=== PATIENT | male | born 1955 | race Caucasian/White ===

== ENCOUNTER 2020-03-15 17:59 | Inpatient (IN) ==
[2020-03-15 18:22] LABS: Hematocrit 57.1 % (42.0-52.0); Hemoglobin 18.3 gm/dL (13.5-18.0); Mean Cell Volume 91.2 fl (78-100); Mean Corpuscular Hemoglobin 29.2 pg (27-31); Mean Platelet Volume 9.2 fl (8-11.3); Neutrophil # 8.8 K/mm3 (1.3-6.0); Platelet Count 365 K/mm3 (150-450); Red Blood Count 6.26 M/mm3 (4.7-6.0); Red Cell Distribution Width 13.1 % (11.5-14.0); White Blood Count 10.3 K/mm3 (4.0-10.5)
--- NOTE | 2020-03-15 18:38 | ERNOTE ---
<Alicia Livingston - Last Filed: 03/15/20 18:54> Neuro HPI ER Record Presenting Symptoms: other Time Seen by Provider: 03/15/20 18:00 Source: EMS Exam Limitations: dementia Immunizations: IMMUNIZATION HX Immunizations Up to Date Yes History of Influenza Vaccine No Hx Pneumococcal Vaccination No Allergies/Adverse Reactions: Allergies Allergy/AdvReac Type Severity Reaction Status Date / Time No Known Allergies Allergy Unverified 03/15/20 19:01 Home Medications: HOME MEDICATIONS NK 03/15/20 [Last Taken Unknown] - History of Present Illness Narrative: Patient is coming to the ER by altered mental status. Initial history is only available by EMS, but daughter is available shortly after arrival of the patient. Daughter reports that the patient has a longstanding history of drug use which includes meth. She is not aware of all the details since he had disappeared from her life and was homeless for a while. About 3 years ago another daughter found the patient and any drugs been at the house of the daughter who is currently here. She reports that he has been declining ever since, has been confused, very minimal communication is possible, patient understands his name but not too much else. No official diagnosis of dementia has been made. She has tried for a couple years unsuccessfully to get in place in the care center. Last year he was in the hospital and cough which but could not be placed in the care center because there was no funding. Since the patient never worked he has no insurance. The daughter has tried to apply for disability for him to get funding states that all the paperwork has been completed. Since she does not have a power of prosecuting attorney she is not able to get his medical records and has only limited access to the process of getting him disability. The daughter is very frustrated and crying as she is a single mom of 3 teenage children and the patient has been very uncooperative, refusing to take a bath, taking off his depends, urinating and defecating all over her house. This afternoon when she came home from work he was leaning on his bed, seemed to be weaker than usual and more sleepy, had vomited and put all over the house again. Patient is unable to give any history, can only state his name Review of Systems - Narrative Narrative: unable to obtain Medical History (Last Reviewed 03/15/20 @ 18:37 by Alicia Livingston MD) History of dementia Hx of drug abuse Social History: (Last Updated 03/15/20 @ 18:36 by Xiomara Dukes RN) Tobacco: Smoking Status: Current every day smoker Alcohol: alcohol intake: former Substance Use: substance use type: former substance user Physical Exam - Physical Exam General Appearance: Present: wd/wn, alert, no apparent distress, other - unkept, dirty, with feces between his toes and in his clothes Head Exam: Present: normal inspection, no evidence of injury Eye Exam: Normal inspection: bilateral, PERRL: bilateral Ears, Nose, Throat: Present: normal pharynx, other - edentulous Neck: Present: nontender Respiratory: Present: no respiratory distress, no accessory muscle use, lungs clear, decreased breath sounds Cardiovascular/Chest: Present: regular rate, rhythm, no murmur Gastrointestinal/Abdominal: Present: nontender, nondistended, soft Extremity Exam: Present: no edema Neurological Exam: Present: alert, other - moves all extremities, is able to state name, doesn't answer any other questions Skin Exam: Present: normal color, warm/dry Ana Coma Scale - Assess Eye Opening: Spontaneous Motor: Obeys Commands Verbal: Confused - Total Coma Scale Total: 14 Progress - Results and Orders Patient's Lab Results:: I have reviewed the patient's lab results. - Vital Signs Patient's Vital Signs:: I have reviewed the patient's vital signs. Vital Signs: Vital Signs 03/15/20 18:00 Temperature 36.3 C Pulse Rate 96 Respiratory Rate 16 Blood Pressure 115/79 O2 Sat by Pulse Oximetry 100 - EKG EKG #1 EKG: NSR, nonspecific ST T wave changes, other - prominent P-wave EKG read: Interp. by me - Progress/Reassessment Chief Complaint: Altered Mental Status Progress Note-Subjective: 03/15/20 19:43 patient did not cooperate with chest and abdomen Xray, which was ordered as he reportedly vomited at home, no vomiting here Departure Clinical Impression: Hyperproteinemia Altered mental state Qualifiers: Altered mental status type: unspecified Qualified Code(s): R41.82 - Altered mental status, unspecified Acute renal failure Qualifiers: Acute renal failure type: unspecified Qualified Code(s): N17.9 - Acute kidney failure, unspecified - Departure Disposition: Still a patient Condition: Stable <Brodale,Paul - Last Filed: 03/16/20 00:59> Neuro HPI ER Record Immunizations: IMMUNIZATION HX Immunizations Up to Date Yes History of Influenza Vaccine No Hx Pneumococcal Vaccination No Medical History (Last Reviewed 03/15/20 @ 18:37 by Alicia Livingston MD) History of dementia Hx of drug abuse Social History: (Last Updated 03/15/20 @ 18:36 by Xiomara Dukes RN) Tobacco: Smoking Status: Current every day smoker Alcohol: alcohol intake: former Substance Use: substance use type: former substance user Physical Exam - Physical Exam General Appearance: Present: wd/wn, alert, no apparent distress Head Exam: Present: normal inspection, no evidence of injury Respiratory: Present: no respiratory distress, no accessory muscle use Neurological Exam: Present: alert Progress - Vital Signs Vital Signs: Vital Signs 03/15/20 18:00 03/15/20 19:07 03/15/20 19:50 Temperature 36.3 C Pulse Rate 96 94 87 Respiratory Rate 16 22 H 27 H Blood Pressure 115/79 98/76 103/64 O2 Sat by Pulse Oximetry 100 100 99 03/15/20 19:51 Temperature Pulse Rate 87 Respiratory Rate Blood Pressure O2 Sat by Pulse Oximetry - CT/Ultrasound CT/Ultrasound Narrative: Ct head: IMPRESSION: 1. NO ACUTE INTRACRANIAL PROCESS; IF THERE IS CONTINUED CLINICAL CONCERN, FOLLOW-UP CT OR MRI IS RECOMMENDED. 2. AGE-RELATED ATROPHY WITH MODERATE ISCHEMIC SMALL VESSEL DISEASE IN THE PERIVENTRICULAR WHITE MATTER. 3. PROMINENT LATERAL VENTRICLES; CENTRAL ATROPHY VERSUS NORMAL PRESSURE HYDROCEPHALUS. Electronically signed by Tavo Sousa M.D.. - Progress/Reassessment Progress Note-Subjective: 03/15/20 20:[address] Del Toro and he agrees with admission. 03/16/20 00:24 With difficulty swabbing patient for preadmission Covid. At the same time he pulled his IV out and it needed to be restarted. We did get the patient calmed down and got Covid testing which was negative. Patient has been calm and cooperative since that time Paul Morgan DO, FAAFP
[2020-03-15 18:56] LABS: Urine Bilirubin 1 mg/dl (NEGATIVE); Urine Blood Negative /ul (NEGATIVE); Urine Ketone 5 mg/dL (NEGATIVE); Urine Nitrite Negative (NEGATIVE); Urine Protein 100 mg/dL (NEGATIVE); Urine Specific Gravity >=1.030 SP.GR. (1.005-1.030); Urine Urobilinogen Normal (NORMAL)
[2020-03-15 18:58] LABS: ALT 25 U/L (19-67); AST 28 U/L (0-48); Albumin * 5.6 gm/dl (3.4-5.0); Alkaline Phosphatase * 110 U/L (50-170); Anion Gap 22.8 mmol/L (6.8-13.8); BUN/Creatinine Ratio 11.3 (9.0-21.6); Bilirubin, Total 0.5 mg/dL (0.0-1.1); Blood Urea Nitrogen 46 mg/dL (6-23); CRP 0.7 mg/dL (0.0-0.9); Ca. Corrected For Albumin 9.5 mg/dL (8.4-10.2); Calcium * 11.1 mg/dL (7.9-10.9); Carbon Dioxide 22.8 mmol/L (24-32.6); Chloride 102 mmol/L (97-106); Glucose * 163 mg/dL (70-110); Potassium 4.6 mmol/L (3.4-4.6); Sodium 143 mmol/L (132-142); Total Protein 10.4 gm/dL (6.2-8.2)
[2020-03-15 18:59] LABS: Troponin I Less than 0.017 ng/mL (0.00-0.10)
[2020-03-15 19:12] LABS: Urine Amorphous Sediment Many - 3+ (NONE-FEW); Urine Appearance Cloudy (CLEAR); Urine Bacteria TRACE; Urine Color Yellow; Urine RBC 0-5 /hpf (0-5); Urine WBC 0-5 /hpf (0-5)
[2020-03-15 19:17] LABS: Cocaine Ur Negative (NEGATIVE); Urine Barbiturate Negative (NEGATIVE); Urine Benzodiazepines Negative (NEGATIVE); Urine Opiates Negative (NEGATIVE); Urine PCP Negative (NEGATIVE); Urine THC Negative (NEGATIVE)
[2020-03-15] MEDS ORDERED: NORMAL SALINE 1,000 ML IV ONE (19:51)
[2020-03-16] MEDS ORDERED: NORMAL SALINE 1,000 ML IV PRN (08:09)
[2020-03-16] MEDS ORDERED: LORazepam 2 MG/ML DISP.SYRIN IV PRN (08:19)
[2020-03-16 08:40] LABS: Albumin * 4.3 gm/dl (3.4-5.0); Anion Gap 17.9 mmol/L (6.8-13.8); BUN/Creatinine Ratio 10.4 (9.0-21.6); Bilirubin, Total 0.5 mg/dL (0.0-1.1); Calcium * 8.6 mg/dL (7.9-10.9); Carbon Dioxide 22.2 mmol/L (24-32.6); Potassium 4.1 mmol/L (3.4-4.6); Total Protein 8.3 gm/dL (6.2-8.2)
[2020-03-16 09:40] LABS: Phosphorus 5.6 mg/dL (2.2-4.2); Uric Acid 11.6 mg/dL (2.6-7.2)
--- NOTE | 2020-03-16 15:27 | CONS ---
- Reason for consultation (1) Altered mental state Date of Service: 03/16/20 HPI - General Source: patient, RN/MD, RN notes reviewed Exam Limitations: clinical condition - History of Present Illness Timing/Duration: unsure Allergies/Adverse Reactions: Allergies No Known Allergies Allergy (Unverified 03/15/20 19:01) Home Medications: Home Medications Medication Instructions Recorded Last Taken NK 03/15/20 Unknown Medications - Medications Current Medications: Current Medications Sodium Chloride (Sodium Chloride 0.9%) 1,000 mls @ 125 mls/hr IV .Q8H PRN PRN Reason: HYDRATION Stop: 04/15/20 08:10 Last Infusion: 03/16/20 09:30 Dose: Infused Documented by: Review of Systems - Review of Systems Generalized/Overall Review: Present: Malaise Neurological: Present: Other - Confusion Physical Examination - Exam Narrative: Patient has been increasingly confused at home. Is alert to person only, confused to place and time. Gives minimal responses. Has been uncooperative with cares and medical treatment, refused testing, refused a bath and pulled IV out. Is unable or unwilling to answer questions. Sleeping excessively. Discussed plan of care with Dr. Del Toro. I agree that he would benefit from [facility] placement for further evaluation and treatment. Vital Signs: Vital Signs - Last Taken Temp 36.8 C 03/16/20 12:00 Pulse 67 03/16/20 12:00 Resp 18 03/16/20 12:00 BP 115/62 03/16/20 12:00 Pulse Ox 96 03/16/20 12:00 O2 Oxygen Delivery Method Room Air Constitutional: Present: Alert, Looks Older than stated age. Absent: Oriented x3, Cooperative Neurologic: Present: other - Disoriented x 2. Appearance: Present: appropriate insight, impaired insight, impaired recent memory, impaired remote memory Eye contact: Present: refused to answer, uncooperative Thoughts: Present: no apparent hallucination, other - Confusion. - Results and Findings: Lab/Microbiology results last 24 hrs: Abnormal/Pending Laboratory Last 24 HRS 03/16/20 03/16/20 03/15/20 08:20 08:20 18:48 RBC Hgb Hct Immature Gran # (Auto) Neutrophils % Lymphocytes % Neutrophils # Lymphocytes # Sodium 144 H Plasma Sodium 144 H Chloride 108 H Carbon Dioxide 22.2 L Anion Gap 17.9 H BUN 58 H Creatinine 5.56 H D Est GFR (Non-Af Amer) 11 L D Random Glucose 125 H Uric Acid 11.6 H Calcium Calcium Adj for Albumin 8.0 L Phosphorus 5.6 H Total Protein 8.3 H Albumin Urine Protein 100 H Urine Bilirubin 1 H Amorphous Sediment Many - 3+ H 03/15/20 03/15/20 18:15 18:15 RBC 6.26 H Hgb 18.3 H Hct 57.1 H Immature Gran # (Auto) 0.04 H Neutrophils % 85.0 H Lymphocytes % 7.7 L Neutrophils # 8.8 H Lymphocytes # 0.80 L Sodium 143 H Plasma Sodium 144 H Chloride Carbon Dioxide 22.8 L Anion Gap 22.8 H BUN 46 H Creatinine 4.08 H Est GFR (Non-Af Amer) 16 L D Random Glucose 163 H Uric Acid Calcium 11.1 H Calcium Adj for Albumin Phosphorus Total Protein 10.4 H Albumin 5.6 H Urine Protein Urine Bilirubin Amorphous Sediment Culture 03/15/20 18:48 Urine Culture - Preliminary Urine,Catheterized No Growth - Assessments/Findings (1) Altered mental state Problem: Acute Qualifiers: Altered mental status type: unspecified Qualified Code(s): R41.82 - Altered mental status, unspecified
--- NOTE | 2020-03-16 21:38 | HP ---
Chief Complaint - Chief Complaint Date of Service: 03/16/20 Time of Service: 09:00 Chief Complaint: altered mental status History of Present Illness: Jovanny is a 64 yo male that was brought to the [facility] Er with changing mental status. He has been more and more confused over the past year with recent development of urinating and defecating on the floor at his daughter's house. He has been homeless and a drug user for most of his adult life. He was homeless in [place] and was found by a step daughter and brought back to live with his daughter in [place]. He has been living in the living room. Even when he arrived he had what appears to be dementia or brain disease from years of meth abuse. His daughter reports not recognizing her and not able to carry a conversation. She reports for the past year he wanders around her home, her family avoids interaction with him, and she brings him food and water which he manages to take on his own. She reports over the last few weeks he has not been drinking and eating as well and has recently lost the ability to remember to use the bathroom for toileting. She believes this has been a progressive decline over the past year and has not noticed any sudden changes. She has been working for the past year to get him into a residential home but has not been able to afford care and he has not qualified for assistance as he has never worked. In the ER he had imaging and labs. The only significant abnormality was creatinine of 4. This is new from a year ago when his creatinine was near 1.0 Medical History (Last Reviewed 03/15/20 @ 18:37 by Alicia Livingston MD) History of dementia Hx of drug abuse Surgical History: Surgical History (Last Updated 03/16/20 @ 21:37 by Lester Del Toro DO) Surgical history unknown Family History: Family History (Last Updated 03/16/20 @ 21:36 by Lester Del Toro DO) Other Family history non-contributory Social History: (Last Updated 03/15/20 @ 18:36 by Xiomara Dukes RN) Tobacco: Smoking Status: Current every day smoker Alcohol: alcohol intake: former Substance Use: substance use type: former substance user Review Of Systems (GEN) - Review of Systems Additional Comments: unable to complete due to condition Immunizations: IMMUNIZATION HX Immunizations Up to Date Yes History of Influenza Vaccine No Hx Pneumococcal Vaccination No Allergies/Adverse Reactions: Allergies Allergy/AdvReac Type Severity Reaction Status Date / Time No Known Allergies Allergy Unverified 03/15/20 19:01 Home Medications: HOME MEDICATIONS NK 03/15/20 [Last Taken Unknown] Exam - Exam Vital Signs: Vital Signs - Last Taken Temp 36.6 C 03/16/20 19:55 Pulse 64 03/16/20 19:55 Resp 20 03/16/20 19:55 BP 94/61 03/16/20 19:55 Pulse Ox 95 03/16/20 19:55 Constitutional: Present: Alert, No distress. Absent: Oriented x3 ENT Exam: Present: hearing grossly normal Eye Exam: bilateral eye: normal inspection Respiratory: Present: lungs clear, normal breath sounds, no respiratory distress Cardiovascular/Chest: Present: regular rate, rhythm, no edema Peripheral Pulses: radial (R): 2+, radial (L): 2+ Abdomen: Present: Normal bowel sounds, soft, nontender, nondistended Extremity: Present: normal inspection Skin Exam: Present: normal color, warm/dry, no cyanosis Neurologic: Present: no motor/sensory deficits Thoughts: Present: other - Answers yes or no to qsimple questions but I do not believe he understands. When asked more open ended questions he laughs Diagnostic Studies: Abnormal Lab Results 03/16/20 03/16/20 Range/Units 08:20 08:20 Sodium 144 H (132-142) mmol/L Plasma Sodium 144 H (130-142) mmol/L Chloride 108 H (97-106) mmol/L Carbon Dioxide 22.2 L (24-32.6) mmol/L Anion Gap 17.9 H (6.8-13.8) mmol/L BUN 58 H (6-23) mg/dL Creatinine 5.56 H D (0.4-1.4) mg/dL Est GFR (Non-Af Amer) 11 L D (60-130) mL/min Random Glucose 125 H (70-110) mg/dL Uric Acid 11.6 H (2.6-7.2) mg/dL Calcium Adj for Albumin 8.0 L (8.4-10.2) mg/dL Phosphorus 5.6 H (2.2-4.2) mg/dL Total Protein 8.3 H (6.2-8.2) gm/dL Microbiology 03/15/20 18:48 Urine Culture - Preliminary Urine,Catheterized No Growth Laboratory Results WBC 10.3 K/mm3 (4.0-10.5) 03/15/20 18:15 RBC 6.26 M/mm3 (4.7-6.0) H 03/15/20 18:15 Hgb 18.3 gm/dL (13.5-18.0) H 03/15/20 18:15 Hct 57.1 % (42.0-52.0) H 03/15/20 18:15 MCV 91.2 fl (78-100) 03/15/20 18:15 MCH 29.2 pg (27-31) 03/15/20 18:15 MCHC 32.0 g/dl (32-36) 03/15/20 18:15 RDW 13.1 % (11.5-14.0) 03/15/20 18:15 Plt Count 365 K/mm3 (150-450) 03/15/20 18:15 MPV 9.2 fl (8-11.3) 03/15/20 18:15 Immature Gran % (Auto) 0.40 % (0.001-0.429) 03/15/20 18:15 Immature Gran # (Auto) 0.04 K/mm3 (0.000-0.0310) H 03/15/20 18:15 Neutrophils % 85.0 % (42-75.0) H 03/15/20 18:15 Lymphocytes % 7.7 % (20-51) L 03/15/20 18:15 Monocytes % 6.7 % (0.0-9) 03/15/20 18:15 Eosinophils % 0.0 % (0.0-3.0) 03/15/20 18:15 Basophils % 0.2 % (0.0-1.0) 03/15/20 18:15 Nucleated RBC % 0.0 k/mm3 (0-1) 03/15/20 18:15 Neutrophils # 8.8 K/mm3 (1.3-6.0) H 03/15/20 18:15 Lymphocytes # 0.80 k/mm3 (1.5-3.5) L 03/15/20 18:15 Monocytes # 0.7 k/mm3 (0.0-1.0) 03/15/20 18:15 Eosinophils # 0.0 k/mm3 (0.0-0.7) 03/15/20 18:15 Absolute Basophils 0.0 k/mm3 (0.0-0.1) 03/15/20 18:15 Sodium 144 mmol/L (132-142) H 03/16/20 08:20 Plasma Sodium 144 mmol/L (130-142) H 03/16/20 08:20 Potassium 4.1 mmol/L (3.4-4.6) 03/16/20 08:20 Chloride 108 mmol/L (97-106) H 03/16/20 08:20 Carbon Dioxide 22.2 mmol/L (24-32.6) L 03/16/20 08:20 Anion Gap 17.9 mmol/L (6.8-13.8) H 03/16/20 08:20 BUN 58 mg/dL (6-23) H 03/16/20 08:20 Creatinine 5.56 mg/dL (0.4-1.4) H D 03/16/20 08:20 Est GFR (Non-Af Amer) 11 mL/min (60-130) L D 03/16/20 08:20 BUN/Creatinine Ratio 10.4 (9.0-21.6) 03/16/20 08:20 Random Glucose 125 mg/dL (70-110) H 03/16/20 08:20 Uric Acid 11.6 mg/dL (2.6-7.2) H 03/16/20 08:20 Calcium 8.6 mg/dL (7.9-10.9) 03/16/20 08:20 Calcium Adj for Albumin 8.0 mg/dL (8.4-10.2) L 03/16/20 08:20 Phosphorus 5.6 mg/dL (2.2-4.2) H 03/16/20 08:20 Total Bilirubin 0.5 mg/dL (0.0-1.1) 03/16/20 08:20 AST 25 U/L (0-48) 03/16/20 08:20 ALT 22 U/L (19-67) 03/16/20 08:20 Alkaline Phosphatase 86 U/L (50-170) 03/16/20 08:20 Troponin I Less than 0.017 ng/mL (0.00-0.10) 03/15/20 18:15 C-Reactive Prot, Quant 0.7 mg/dL (0.0-0.9) 03/15/20 18:15 Total Protein 8.3 gm/dL (6.2-8.2) H 03/16/20 08:20 Albumin 4.3 gm/dl (3.4-5.0) 03/16/20 08:20 Urine Color Yellow 03/15/20 18:48 Urine Appearance Cloudy (CLEAR) 03/15/20 18:48 Urine pH 5.0 pH (5.0-7.0) 03/15/20 18:48 Ur Specific Arley >=1.030 SP.GR. (1.005-1.030) 03/15/20 18:48 Urine Protein 100 mg/dL (NEGATIVE) H 03/15/20 18:48 Urine Glucose (UA) Negative mg/dL (NEGATIVE) 03/15/20 18:48 Urine Ketones 5 mg/dL (NEGATIVE) 03/15/20 18:48 Urine Blood Negative /ul (NEGATIVE) 03/15/20 18:48 Urine Nitrate Negative (NEGATIVE) 03/15/20 18:48 Urine Bilirubin 1 mg/dl (NEGATIVE) H 03/15/20 18:48 Urine Urobilinogen Normal EU/dl (NORMAL) 03/15/20 18:48 Ur Leukocyte Esterase Negative /ul (NEGATIVE) 03/15/20 18:48 Urine RBC 0-5 /hpf (0-5) 03/15/20 18:48 Urine WBC 0-5 /hpf (0-5) 03/15/20 18:48 Ur Epithelial Cells 0-5 /hpf (0-5) 03/15/20 18:48 Amorphous Sediment Many - 3+ (NONE-FEW) H 03/15/20 18:48 Urine Bacteria Trace (NONE) 03/15/20 18:48 Urine Culture Comments Culture to follow 03/15/20 18:48 Urine Opiates Screen Negative (NEGATIVE) 03/15/20 18:45 Barbiturate Screen Negative (NEGATIVE) 03/15/20 18:45 Ur Phencyclidine Scrn Negative (NEGATIVE) 03/15/20 18:45 Urine Amphetamine Negative (NEGATIVE) 03/15/20 18:45 U Benzodiazepines Scrn Negative (NEGATIVE) 03/15/20 18:45 Urine Cocaine Screen Negative (NEGATIVE) 03/15/20 18:45 Urine Marijuana (THC) Negative (NEGATIVE) 03/15/20 18:45 Ethyl Alcohol Less than 3.0 mg/dL (0.0-10.0) 03/15/20 18:15 SARS-CoV-2 (PCR) Not detected (NotDetected) 03/15/20 23:10 Assessment/Plan - Narrative Narrative: Jovanny is a 64 yo male with progressive dementia and acute renal failure. His creatinine is 4 with a previously normal renal function. I suspect this is secondary to decreased oral intake due to the dementia. Will consult psychiatry for an evaluation of his mental status. Discussed his condition with his daughter who understands this to be progressive. Plan to give IV fluids but due to his mental status he is declining medical cares. Discussed restraining him to provide cares but his daughter does not want this and understands that even after forcing hydration once correction of renal failure is achieved his current condition would likely cause him to be unable to maintain adequate hydration and nourishment to prevent this from repeatedly reoccurring. Discussed hospice adn comfort cares which she is in agreement with. - Assessment/Plan (1) Altered mental state Problem: Acute Qualifiers: Altered mental status type: disorientation Qualified Code(s): R41.0 - Disorientation, unspecified (2) Acute renal failure Problem: Acute Qualifiers: Acute renal failure type: unspecified Qualified Code(s): N17.9 - Acute kidney failure, unspecified
--- NOTE | 2020-03-18 03:36 | PN ---
Subjective - Date and Time Seen Date: 03/17/20 Time: 11:30 Subjective Narrative: Jovanny is calm and pleasant. He answers simple questions with yes or no, although I am not convinced that he really understands. Any open ended questions he laughs at. He is quiet and calm when left alone but he does not want to do anything if asked to do something. He ate small bites today. Objective - Vitals Vitals: Last Vital Signs Temp 36.2 C 03/18/20 02:17 Pulse 65 03/18/20 02:17 Resp 20 03/18/20 02:17 BP 125/66 03/18/20 02:17 Pulse Ox 99 03/18/20 02:17 - Abnormal Lab Findings Abnormal Lab Findings: Abnormal Lab Results 03/15/20 Range/Units 18:48 Ur Random Creatinine 325.9 H (60-200) mg/dL - Exam Constitutional: Present: Alert, No distress. 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 He has acute renal failure secondary to decrease in functioning that he cannot adequately take in proper fluid and nutrition. Recommend hospice/comfort cares at nursing facility. He is not able to care for himself and needs more assistance than family can reasonably provide. finance officer looking into placement. He does not allow treatment of his acute renal failure, but again even if treated his condition would cause this to reoccur. - Problems/Diagnosis (1) Altered mental state Problem: Acute Qualifiers: Altered mental status type: disorientation Qualified Code(s): R41.0 - Disorientation, unspecified (2) Acute renal failure Problem: Acute Qualifiers: Acute renal failure type: unspecified Qualified Code(s): N17.9 - Acute kidney failure, unspecified
[2020-03-18] MEDS ORDERED: LORazepam 1 MG TABLET PO PRN (08:58)
[2020-03-18] MEDS: HALOPERIDOL LACTATE 2 MG/ML ORAL.CONC PO PRN ×2 (13:20→21:20)
--- NOTE | 2020-03-18 13:25 | PN ---
Subjective - Date and Time Seen Date: 03/18/20 Time: 09:30 Subjective Narrative: Nursing reports that Jovanny is beginning to have behaviors. He will not keep his pants on. He walking around his room and now starting to walk outside the room into the [place] without his pants on. Nursing is had to keep him at a distance for safety purposes. I gave him a milligram of lorazepam this morning but it had no effect. It was given and pudding and he ate it well. I will start him on haloperidol 2 mg every 8 hours for behaviors. Otherwise there is been no other medical changes. He will need intermediate placement but that will happen until sometime next week. Objective - Review of Systems Generalized/Overall Review: Reports: No Symptoms Reported EENTM: Reports: No Symptoms Reported Respiratory: Reports: No Symptoms Reported Cardiac: Reports: No Symptoms Reported Abdominal: Reports: No Symptoms Reported Genitourinary Symptoms: Reports: No Symptoms Reported Musculoskeletal Complaints: Reports: No Symptoms Reported Neurological: Reports: Other - Psychosis Skin: Reports: No Symptoms Reported Endocrine: Reports: No Symptoms Reported - Vitals Vitals: Last Vital Signs Temp 36.3 C 03/18/20 06:00 Pulse 71 03/18/20 06:00 Resp 18 03/18/20 06:00 BP 127/91 H 03/18/20 06:00 Pulse Ox 93 03/18/20 06:00 - Exam Constitutional: Present: Alert, Well developed, No distress, Looks Older than stated age. Absent: Oriented x3, Cooperative, Well nourished ENT Exam: Present: normal ENT inspection, hearing grossly normal, pharynx normal, TMs normal Neck: Present: non-tender, full range of motion, supple, normal inspection Breasts: Present: Exam deferred Respiratory: Present: chest non-tender, lungs clear, normal breath sounds, no respiratory distress, no accessory muscle use Cardiovascular/Chest: Present: normal peripheral pulses, regular rate, rhythm, no chest tenderness, no edema, no gallop, no JVD, no murmur, no rub Abdomen: Present: Normal bowel sounds, soft, nontender, nondistended /Rectal: Present: External genitalia normal Extremity: Present: normal range of motion, non-tender, normal inspection, no pedal edema, no calf tenderness, normal capillary refill Skin Exam: Present: normal color, warm/dry, no cyanosis Lymphatic: Present: no adenopathy Neurologic: Present: esl teacher II-XII nml as tested, no motor/sensory deficits, alert. Absent: normal mood/affect - Confused, agitated behaviors Appearance: Present: disheveled, impaired insight, impaired recent memory, impaired remote memory Eye contact: Present: uncooperative Thoughts: Present: other - Confused, irrational Assessment/Plan Plan Narrative: 1. Continue minimal monitoring. He resists vital signs being checked. He will keep an eye VN. We reviewed refuses and gets combative with lab work. 2. Case management will be working on intermediate placement after the . 3. Add haloperidol 2 mg concentrate in liquids 3 times daily 4. Increase lorazepam to 2 mg every 6 hours and food as needed for agitation and behaviors. 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
[2020-03-18] MEDS: LORazepam 1 MG TABLET PO PRN (15:43)
[2020-03-19] MEDS: LORazepam 1 MG TABLET PO PRN ×3 (00:57→21:57)
[2020-03-19] MEDS ORDERED: HALOPERIDOL LACTATE 2 MG/ML ORAL.CONC PO ONE ×2 (01:46→23:52)
[2020-03-19] MEDS: HALOPERIDOL LACTATE 2 MG/ML ORAL.CONC PO PRN ×2 (08:58→22:08)
--- NOTE | 2020-03-19 10:07 | PN ---
Subjective - Date and Time Seen Date: 03/19/20 Time: 09:57 Subjective Narrative: Jovanny became more difficult to manage yesterday. He became combative little bit aggressive towards nursing staff. He would not cooperate. Would not keep his pants on. He was going for a walk in the [place] his clothes on. I started him on haloperidol concentrate 2 mg every 8 hours and it seems to be helping some this morning. Nursing called last night and reported that he had had a fall. There were no deformities and so I had him wait until this morning when I could assess him to decide whether x-raying was needed or not. He does have tenderness and swelling in the right shoulder and so I have ordered an x- ray for that this morning. He guards the shoulder when examined as well. Otherwise he seems to be doing okay. He eats fairly well. He is incontinent both bowel and bladder. Objective - Review of Systems Generalized/Overall Review: Reports: No Symptoms Reported EENTM: Reports: No Symptoms Reported Respiratory: Reports: No Symptoms Reported Cardiac: Reports: No Symptoms Reported Abdominal: Reports: No Symptoms Reported Genitourinary Symptoms: Reports: No Symptoms Reported Musculoskeletal Complaints: Reports: Joint Pain - Right shoulder Neurological: Reports: No Symptoms Reported, Other - Psychosis Skin: Reports: No Symptoms Reported Endocrine: Reports: No Symptoms Reported - Vitals Vitals: Last Vital Signs Temp 36.9 C 03/19/20 07:00 Pulse 76 03/19/20 07:00 Resp 18 03/19/20 07:00 BP 116/61 03/19/20 07:00 Pulse Ox 97 03/19/20 07:00 - EKG/Xray Findings XRAY: shoulder - Right - Exam Constitutional: Present: Alert, Well developed, No distress, Looks Older than stated age. Absent: Oriented x3, Cooperative ENT Exam: Present: normal ENT inspection Neck: Present: non-tender Breasts: Present: Exam deferred Respiratory: Present: chest non-tender, lungs clear, normal breath sounds, no respiratory distress, no accessory muscle use Cardiovascular/Chest: Present: normal peripheral pulses, regular rate, rhythm, no chest tenderness, no edema, no gallop, no JVD, no murmur, no rub Abdomen: Present: Normal bowel sounds, soft, nontender, nondistended /Rectal: Present: Exam deferred, External genitalia normal Extremity: Present: no pedal edema, no calf tenderness, normal capillary refill. Absent: normal range of motion - Right shoulder has limited range of motion and he is guarding it on exam. There is palpable soft tissue swelling. Skin Exam: Present: normal color, warm/dry, no cyanosis Lymphatic: Present: no adenopathy Neurologic: Present: health and safety specialist II-XII nml as tested, no motor/sensory deficits, abnormal gait Appearance: Present: disheveled, impaired insight, impaired recent memory, impaired remote memory Eye contact: Present: uncooperative Thoughts: Present: other - Psychotic behaviors. 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 Problem: Acute (2) COPD (chronic obstructive pulmonary disease) Problem: Acute Qualifiers: COPD type: unspecified COPD Qualified Code(s): J44.9 - Chronic obstructive pulmonary disease, unspecified (3) Altered mental state Problem: Acute Qualifiers: Altered mental status type: disorientation Qualified Code(s): R41.0 - Disorientation, unspecified (4) Fall during current hospitalization Problem: Acute Qualifiers: Encounter type: initial encounter Qualified Code(s): W19.XXXA - Unspecified fall, initial encounter; Y92.239 - Unspecified place in hospital as the place of occurrence of the external cause (5) Right shoulder pain Problem: Acute Qualifiers: Chronicity: acute Qualified Code(s): M25.511 - Pain in right shoulder
[2020-03-19] MEDS: MORPHINE SULFATE 10 MG/0.5 ML SYRINGE PO PRN ×3 (11:36→20:44)
--- NOTE | 2020-03-19 12:53 | CONS ---
[facility] - General Date of Service: 03/19/20 Narrative: Mr. Dooley is a 64-year-old gentleman with a history of drug abuse who was admitted for altered mental status and difficulty with care at home. His medical team was looking for placement when he noted to have swelling, bruising, and discomfort in his right shoulder and radiographs were obtained which showed a mildly impacted minimally displaced right proximal humerus fracture. He does not follow commands and is unable to answer questions upon evaluation today. All my information comes from nursing and physician notes. Source: RN/MD Exam Limitations: clinical condition - History of Present Illness Timing/Duration: unsure Severity: mild Modifying Factors - (Worsens): Reports: movement Modifying Factors - (Improves): Reports: immobilization, medication Associated Symptoms: other - Obtained from patient Allergies/Adverse Reactions: Allergies No Known Allergies Allergy (Unverified 03/15/20 19:01) Home Medications: Home Medications Medication Instructions Recorded Last Taken NK 03/15/20 Unknown Medications - Medications Current Medications: Current Medications Sodium Chloride (Sodium Chloride 0.9%) 1,000 mls @ 125 mls/hr IV .Q8H PRN PRN Reason: HYDRATION Stop: 04/15/20 08:10 Last Infusion: 03/16/20 09:30 Dose: Infused Documented by: Lorazepam (Lorazepam 1 Mg Tablet) 2 mg PO Q6HRT PRN PRN Reason: anxiety Stop: 04/17/20 08:59 Last Admin: 03/19/20 00:57 Dose: 2 mg Documented by: Morphine Sulfate (Morphine Sulfate 10 Mg/0.5 Ml Syringe) 10 mg PO Q4H PRN PRN Reason: Pain Stop: 04/18/20 11:18 Last Admin: 03/19/20 11:36 Dose: 10 mg Documented by: Review of Systems - Review of Systems Narrative: Unable to obtain from patient Physical Examination - Exam Narrative: He is resting in bed. He does not wake up to verbal or light physical stimuli but appears to be resting comfortably. Right upper extremity: Ecchymosis with mild swelling to his right proximal arm. No gross deformity. He has palpable radial pulse. He does move his hand to some stimuli. He does not respond to questioning as far as sensation goes. He is not following commands for motion. Vital Signs: Vital Signs - Last Taken Temp 36.9 C 03/19/20 07:00 Pulse 76 03/19/20 07:00 Resp 18 03/19/20 07:00 BP 116/61 03/19/20 07:00 Pulse Ox 97 03/19/20 07:00 O2 Oxygen Delivery Method Room Air - Results and Findings: Narrative: Review shoulder x-ray including axillary views were reviewed of right shoulder: Varus impacted mildly displaced comminuted proximal humerus fracture without dislocation without signs of other acute osseous pathology - Assessments/Findings (1) Fracture of proximal end of right humerus Diagnosis(s): It was discussed with his treating physician that this appears nonsurgical at this time. I would recommend a shoulder immobilizer and nonweightbearing to the arm. He will need repeat films in approximately 1 to 2 weeks. Once signs of early healing the plan will be to start range of motion pending his mental status. He can be transferred to a nursing facility at any point. I will see him back in clinic after discharge. Problem: Acute Qualifiers: Encounter type: initial encounter Fracture type: closed Fracture morphology: other fracture Fracture alignment: nondisplaced Qualified Code(s): S42.294A - Other nondisplaced fracture of upper end of right humerus, initial encounter for closed fracture
[2020-03-20] MEDS: MORPHINE SULFATE 10 MG/0.5 ML SYRINGE PO PRN ×5 (02:41→19:35)
[2020-03-20] MEDS: LORazepam 1 MG TABLET PO PRN ×3 (04:22→19:35)
[2020-03-20] MEDS: HALOPERIDOL LACTATE 2 MG/ML ORAL.CONC PO PRN ×3 (07:05→23:40)
--- NOTE | 2020-03-20 09:59 | PN ---
Subjective - Date and Time Seen Date: 03/20/20 Time: 08:15 Subjective Narrative: . Isaac had a restless night. The Haldol 2 mg and lorazepam 2 mg is not sufficient dosing. Dr. Reynoso has seen him and states he has minimally displaced comminuted fracture of the right proximal humerus with slight varus deformity. It is not dislocated. He recommends an arm immobilizer. I ordered 1 yesterday but we did not have one that would fit him as the only one that he had was a small. It is doubtful that he would keep it on anyway. No surgery is required. Objective - Review of Systems Generalized/Overall Review: Reports: No Symptoms Reported EENTM: Reports: No Symptoms Reported Respiratory: Reports: No Symptoms Reported Cardiac: Reports: No Symptoms Reported Abdominal: Reports: No Symptoms Reported Genitourinary Symptoms: Reports: No Symptoms Reported Musculoskeletal Complaints: Reports: Joint Pain, Joint Swelling - Due to shoulder fracture. Neurological: Reports: No Symptoms Reported Skin: Reports: No Symptoms Reported, Bruising - Bruising over the shoulder is noted. Endocrine: Reports: No Symptoms Reported - Vitals Vitals: Last Vital Signs Temp 36.0 C 03/19/20 21:50 Pulse 108 H 03/19/20 21:50 Resp 22 H 03/19/20 21:50 BP 148/76 03/19/20 21:50 Pulse Ox 100 03/19/20 20:29 - EKG/Xray Findings XRAY: shoulder Interpretation: Reviewed by me - Exam Constitutional: Present: Alert, Oriented x3, Cooperative, Well developed, Well nourished, No distress ENT Exam: Present: normal ENT inspection, hearing grossly normal Neck: Present: non-tender, full range of motion Respiratory: Present: chest non-tender, lungs clear Cardiovascular/Chest: Present: normal peripheral pulses, regular rate, rhythm, n o chest tenderness, no edema, no gallop, no JVD, no murmur Abdomen: Present: Normal bowel sounds, soft, nontender, nondistended, no rebound tenderness, no hepatospenomegaly, no masses /Rectal: Present: Exam deferred Extremity: Present: other - Limited range of motion of the right shoulder due to fracture. Skin Exam: Present: normal color - Except for the ecchymosis over the right shoulder. 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 We will try to get a shoulder immobilizer that will fit him tomorrow 2. Anticipate discharge to a half-way at some point this week. Case management is working on it. 3. 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 Problem: Acute (2) Fracture of proximal end of right humerus Problem: Acute Qualifiers: Encounter type: initial encounter Fracture type: closed Fracture morphology: other fracture Fracture alignment: nondisplaced Qualified Code(s): S42.294A - Other nondisplaced fracture of upper end of right humerus, initial encounter for closed fracture (3) COPD (chronic obstructive pulmonary disease) Problem: Acute Qualifiers: COPD type: unspecified COPD Qualified Code(s): J44.9 - Chronic obstructive pulmonary disease, unspecified (4) Altered mental state Problem: Acute Qualifiers: Altered mental status type: disorientation Qualified Code(s): R41.0 - Disorientation, unspecified (5) Fall during current hospitalization Problem: Acute Qualifiers: Encounter type: initial encounter Qualified Code(s): W19.XXXA - Unspecified fall, initial encounter; Y92.239 - Unspecified place in hospital as the place of occurrence of the external cause (6) Right shoulder pain Problem: Acute Qualifiers: Chronicity: acute Qualified Code(s): M25.511 - Pain in right shoulder
[2020-03-21] MEDS: MORPHINE SULFATE 10 MG/0.5 ML SYRINGE PO PRN ×8 (00:46→23:14)
[2020-03-21] MEDS: LORazepam 1 MG TABLET PO PRN ×2 (02:16→10:21)
[2020-03-21] MEDS: HALOPERIDOL LACTATE 2 MG/ML ORAL.CONC PO PRN ×2 (07:40→22:09)
[2020-03-21] MEDS: LORAZEPAM 2 MG/ML ORAL.CONC PO PRN ×3 (11:24→22:35)
[2020-03-21] MEDS ORDERED: GLYCERIN/PROPYLENE GLYCOL 150 DROP BTL EACHEYE PRN (16:21)
--- NOTE | 2020-03-21 23:31 | PN ---
Subjective - Date and Time Seen Date: 03/21/20 Time: 16:00 Subjective Narrative: Jovanny was mad comfort cares per daughters wishes. He is non-communicative, demented, without cognitive function to complete and ADLs or have any function of life. He was given morphine for pain control of right shoulder pain and ativan for prn restlessness/anxiety. Objective - Vitals Vitals: Last Vital Signs Temp 36.5 C 03/21/20 02:32 Pulse 112 H 03/21/20 02:32 Resp 16 03/21/20 02:32 BP 113/76 03/21/20 02:32 Pulse Ox 94 03/21/20 02:32 - Exam Constitutional: Present: Somnolent. Absent: Oriented x3 Respiratory: Present: lungs clear, normal breath sounds Cardiovascular/Chest: Present: regular rate, rhythm Abdomen: Present: Normal bowel sounds, soft, nontender, nondistended Neurologic: Present: other - grunts when spoken to Thoughts: Absent: normal thought pattern Assessment/Plan Plan Narrative: Made comfort cares today. 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 Looking into nursing placement with comfort cares/hospice. - Problems/Diagnosis (1) Toxic encephalopathy Problem: Chronic (2) Altered mental state Problem: Acute Qualifiers: Altered mental status type: disorientation Qualified Code(s): R41.0 - Disorientation, unspecified (3) Acute renal failure Problem: Acute Qualifiers: Acute renal failure type: unspecified Qualified Code(s): N17.9 - Acute kidney failure, unspecified
[2020-03-22] MEDS: LORAZEPAM 2 MG/ML ORAL.CONC PO PRN ×6 (02:00→23:55)
[2020-03-22] MEDS: MORPHINE SULFATE 10 MG/0.5 ML SYRINGE PO PRN ×4 (02:52→13:38)
[2020-03-22] MEDS: ATROPINE SULFATE 50 DROP BTL SL PRN ×2 (18:15→21:31)
[2020-03-22] MEDS: HYDROmorphone HCL 2 MG/ML VIAL IV PRN (21:28)
--- NOTE | 2020-03-22 23:22 | PN ---
Subjective - Date and Time Seen Date: 03/22/20 Time: 12:00 Subjective Narrative: Jovanny is somnolent and appears comfortable. No fever, chills, vomiting. Objective - Vitals Vitals: Last Vital Signs Temp 37.6 C 03/22/20 20:21 Pulse 111 H 03/22/20 20:21 Resp 20 03/22/20 20:21 BP 128/71 03/22/20 20:21 Pulse Ox 90 L 03/22/20 20:21 - Exam Constitutional: Present: Somnolent Respiratory: Present: lungs clear, normal breath sounds, no respiratory distress Cardiovascular/Chest: Present: regular rate, rhythm, no murmur Abdomen: Present: hypoactive Skin Exam: Present: normal color, warm/dry, no cyanosis Assessment/Plan Plan Narrative: On comfort cares. Using morphine and ativan prn pain and restlessness. Unable to complete ADLs such as eating and drinking due to cognitive decline. Suspect end of life soon. - Problems/Diagnosis (1) Toxic encephalopathy Problem: Chronic (2) Altered mental state Problem: Acute Qualifiers: Altered mental status type: disorientation Qualified Code(s): R41.0 - Disorientation, unspecified (3) Acute renal failure Problem: Acute Qualifiers: Acute renal failure type: unspecified Qualified Code(s): N17.9 - Acute kidney failure, unspecified
[2020-03-23] MEDS: ATROPINE SULFATE 50 DROP BTL SL PRN ×3 (00:56→15:26)
[2020-03-23] MEDS: HYDROmorphone HCL 2 MG/ML VIAL IV PRN ×4 (02:14→17:06)
[2020-03-23] MEDS: LORAZEPAM 2 MG/ML ORAL.CONC PO PRN ×2 (10:22→15:22)
[2020-03-23 20:53] VITALS: BP 104/71
--- NOTE | 2020-03-23 21:29 | PN ---
Subjective - Date and Time Seen Date: 03/23/20 Time: 12:30 Subjective Narrative: No fevers. Patient has been comfortable. No signs of distress. Objective - Vitals Vitals: Last Vital Signs Temp 39.0 C H 03/23/20 20:52 Pulse 127 H 03/23/20 20:52 Resp 20 03/23/20 20:52 BP 104/71 03/23/20 20:52 Pulse Ox 84 L 03/23/20 20:52 - Exam Constitutional: Present: Obtunded Respiratory: Present: lungs clear, no respiratory distress Cardiovascular/Chest: Present: regular rate, rhythm, no murmur Abdomen: Present: soft, nontender, hypoactive Skin Exam: Present: other - bruising on right shoulder Assessment/Plan Plan Narrative: On comfort cares. No signs of pain or distress. Life expectancy days or hours. - Problems/Diagnosis (1) Toxic encephalopathy Problem: Chronic (2) Altered mental state Problem: Acute Qualifiers: Altered mental status type: disorientation Qualified Code(s): R41.0 - Disorientation, unspecified (3) Acute renal failure Problem: Acute Qualifiers: Acute renal failure type: unspecified Qualified Code(s): N17.9 - Acute kidney failure, unspecified
[2020-03-24] MEDS: HYDROmorphone HCL 2 MG/ML VIAL IV PRN ×6 (01:01→17:22)
[2020-03-24] MEDS: LORAZEPAM 2 MG/ML ORAL.CONC PO PRN ×5 (03:36→17:22)
[2020-03-24] MEDS: ATROPINE SULFATE 50 DROP BTL SL PRN (03:37)
--- NOTE | 2020-03-24 12:51 | PN ---
Subjective - Date and Time Seen Date: 03/24/20 Time: 09:50 Subjective Narrative: Patient does not respond to verbal or tactile stimuli. He appears comfortable and in no distress. Objective - Review of Systems Generalized/Overall Review: Denies: Fever Misc: All systems neg except as marked - Vitals Vitals: Last Vital Signs Temp 39.0 C H 03/23/20 20:52 Pulse 127 H 03/23/20 20:52 Resp 20 03/23/20 20:52 BP 104/71 03/23/20 20:52 Pulse Ox 84 L 03/23/20 20:52 - Exam Constitutional: Present: Well developed, Well nourished, No distress, Obtunded ENT Exam: Present: dry mucous membranes Neck: Present: supple. Absent: lymphadenopathy (R), lymphadenopathy (L) Respiratory: Present: lungs clear - Anterior lung field, no respiratory distress, no accessory muscle use, No wheezing. Absent: crackles, rhonchi Cardiovascular/Chest: Present: normal peripheral pulses, regular rate, rhythm, no edema, no murmur Abdomen: Present: Normal bowel sounds, soft, nontender Extremity: Present: no pedal edema Skin Exam: Present: warm/dry, other - Cyanosis of left foot Neurologic: Absent: alert Appearance: Present: appropriate appearance Eye contact: Absent: good eye contact Assessment/Plan Plan Narrative: 64-year-old male with a past medical history of drug abuse, dementia presents with toxic encephalopathy and acute renal failure. He is currently on comfort measures and appears to be comfortable and in no distress. Plan #1 continue comfort measures - Problems/Diagnosis (1) Acute renal failure Problem: Acute Qualifiers: Acute renal failure type: unspecified Qualified Code(s): N17.9 - Acute kidney failure, unspecified (2) Fracture of proximal end of right humerus Problem: Acute Qualifiers: Encounter type: initial encounter Fracture type: closed Fracture morphology: other fracture Fracture alignment: nondisplaced Qualified Code(s): S42.294A - Other nondisplaced fracture of upper end of right humerus, initial encounter for closed fracture (3) Toxic encephalopathy Problem: Chronic
--- NOTE | 2020-03-29 08:41 | DS ---
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 Patient with toxic encephalopathy secondary to poor oral intake and worsening delirium. Patient with prolonged drug use resulting in unknown brain dysfunction. Patient placed on comfort measures a few days earlier. Patient was made comfortable and passed peacefully. Procedures Performed: none - Additional Data Confirmation of as documented by pronouncing clinician: no pulse, no respirations, no heart sounds Family: contacted Practitioner(Attending/PCP) notified: Yes Was code activated: No Autopsy requested: No Hardware Assembler notified: No Organ Bank notified: No Advance Directives: No
== END 2020-03-24 22:45 | disposition expired | DRG 884 ==
LOC: ER 17:59 → MS 03-16 00:21
PROVIDERS: ADMIT Family Medicine; ATTEND Family Medicine
DX: J44.9 Chronic obstructive pulmonary disease, unspecified; G92 Toxic encephalopathy; Y92.230 Patient room in hospital as the place of occurrence of the external cause; W06.XXXA Fall from bed, initial encounter; F03.91 Unspecified dementia, unspecified severity, with behavioral disturbance; R32 Unspecified urinary incontinence; R15.9 Full incontinence of feces; F15.11 Other stimulant abuse, in remission; S42.201A Unspecified fracture of upper end of right humerus, initial encounter for closed fracture; E88.09 Other disorders of plasma-protein metabolism, not elsewhere classified; N17.9 Acute kidney failure, unspecified; M25.511 Pain in right shoulder